=== PATIENT | female | born 1935 | race African-American/Black ===

== ENCOUNTER → 2016-09-09 | Outpatient (CLI) | payer OTHER ==
[~2016-09-09] VITALS: Ht 144.8 cm; Wt 84.6 kg
[~2016-09-09] MED LIST: ACETAMINOPHEN-1 EAC1 PO; ADVAIR 250-501 EACH INH; ADVAIRDISKUS; ALENDRONATE SOD70 MG PO; ASPIRIN EC81 M1 PO; B COMPLEX-VITA1 EACH PO; BENADRYL25 MG PO; BISA-LAX5 MG PO; CARBIDOPA-LEVO1 EAC6 PO; CARVEDILOL12.5 MG PO; CARVEDILOL6.25 MG PO; CITRATE OF MAG296 ML PO; CLARITIN10 MG PO; CLEOCIN HCL300 MG PO; CLONAZEPAM PO; COLCHICINE 0.60.6 M1 PO; COZAAR 25 MG TA25 M1 PO; D3; DOC-Q-LACE100 MG PO; DOCUSATE SODIU100 MG PO; ENDOCET 7.5-321 EACH PO; FENTANYL PA25 MCG/HR TP; FENTANYL PA50 MCG/HR TP; FLONASE 0.05%50 MCG NASAL; FOLIC ACID 40400 MC1 PO; FUROSEMIDE 40 M40 M1 PO; GLUCOPHAGE PO; GLUCOPHAGE XR500 MG PO; HUMALOG100 UNIT/1 SQ; HYDROCODON-ACE1 EAC7 PO; HYDROCODONE-AP1 EAC6 PO; IBUPROFEN 800800 M1 PO; IRON PO; LANTUS SC; LISINOPRIL40 MG PO; LOSARTAN POTASS50 MG PO; MEDROLDOSEPACK PO; METAMUCIL POWD288 GM; METHOCARBAMOL750 MG PO; MUCINEX DM TABL1 TA1; NEPHROCAPS SOFT1 CAP PO; NEURONTIN 300300 M1 PO; NEXIUM 40 MG CA40 M1 PO; NEXIUM40 MG; NEXIUM40 MG PO; NORCO 5-325 TA1 EACH PO; OXYCODONE-ACET1 EAC2 PO; OXYCODONE-ACET1 EACH PO; OXYCODONE-APAP1 EAC6 PO; PERCOCET 5-3251 EACH PO; POTASSIUM GLUC500 MG PO; PREDNISONE 20 M20 M1 PO; PRIMIDONE50 MG PO; PROAIR HFA8.5 GM IH; ROBAXIN 750 MG750 M1 PO; ROBAXIN 750 MG750 MG PO; SINGULAIR 10 MG10 M1 PO; SINGULAIR PO; SPIRIVA INH; TRAMADOL HCL50 MG PO; TRUSOPT OCUMETE10 M1 OP; TUMS PO; XALATAN2.5 ML OPHTHALMIC; ZANAFLEX4 M2 PO; ZANAFLEX4 MG PO
--- NOTE | ~2016-09-09 | HPC ---
[facility] [address] [place] [address] PAIN MANAGEMENT CONSULTATION Name: JUANCARLOS BRICE Room #: REG DAVID YoungMagoKaronMago#: [id number] Admission: 09/09/16 Attend Phys: Edy Meyers MD Discharge: Date of : 34 Report #: [id number] THIS REPORT FOR: //name// CC: Olman Chong DO Edy Meyers DATE OF SERVICE: 09/09/2016 Followup visit for post-laminectomy syndrome, lumbar radiculopathy, osteoarthritis, left shoulder. The patient was last seen in April, at which time, she received a lumbar epidural injection providing substantial improvement and she also received at that time a shoulder injection also providing improvement. She is here today for repeat of both injections. These palliative procedures are helpful for her and allow her to get along with independent living. I also provided with Tylenol No. 3, which she takes on an average of about 3 times daily and on some rare occasions, she will take an oxycodone 10/325. When the pain is so severe, she has trouble with movements. Both seemed to work effectively. I have been trying to encourage the lowest effective dose of these opioid medications under terms of our written opioid agreement. She has also chronically used the muscle relaxant tizanidine 4 mg and I am allowing her to take that tablet 3 times a day as well. She denies significant side effects despite her age. We might expect her to see more in the way of sedation, but I think her chronic use has reduced that. Today, she complains of fairly intense pain 9-10 across her low back and down into her legs. She has pain of 10 in her left shoulder with all movements. MEDICATIONS: Reviewed and reconciled from the electronic medical record. PHYSICAL EXAMINATION: She is pleasant female. She uses a walker to get around. Her blood pressure is 122/63, heart rate 73, BMI is 40.4. Examination of the spine reveals tenderness across the scar. She is weak when she moves from sitting to standing position and ambulates with a slow unstable gait. She has pain across her scar. She has bilateral straight leg raising which reproduces an achiness into her legs. She moans and groans with any movement of her left shoulder, which is severely arthritic and it is limited in all planes of motion. IMPRESSION: 1. Chronic low back pain secondary to spinal stenosis with neural foraminal narrowing at multiple levels above the level of her fusion. Primarily, this involves L1-L2 and L2-L3 and she has had good response to epidural injections above the scar. [address] [address] PAIN MANAGEMENT CONSULTATION Name: JUANCARLOS BRICE Room #: REG [facility] Karly#: [id number] Admission: 09/09/16 Attend Phys: Edy Meyers MD Discharge: Date of : 34 Report #: [id number] 2. Degenerative osteoarthritis, left shoulder. PROCEDURE: Lumbar epidural injection L1-L2 under fluoroscopic guidance. PROCEDURE NOTE: She was taken to fluoroscopic suite, placed prone, skin prepped with ChloraPrep. C-arm was utilized to identify midline. We had to rotate slightly to the right. A 20-gauge Tuohy epidural needle advanced in the epidural space with loss of resistance. There was no blood or CSF aspirated. 1 mL of Omnipaque injected to demonstrate good spread of dye within the epidural space. This was then followed by 3 mL of 0.5% lidocaine mixed with 80 mg of triamcinolone. She tolerated the procedure well and was observed for 45 minutes and discharged. Before discharge, we also turned her slightly to her right side on the x-ray table and used the C-arm to guide fluoroscopically place a 25-gauge needle into the left shoulder joint aspiration, I injected a 0.25 mL of Omnipaque. This demonstrated arthrogram followed by 4 mL of 0.25% bupivacaine mixed with 40 mg of triamcinolone. Pain score even in recovery room was reduced by 50%. She was discharged with good improvement with followup scheduled only as needed. We typically see her at 2-3 month intervals for her intractable pain. Emotional support provided to Namrata Villaseñor, her caregiver and a niece who has done such a beautiful job of helping keep her in home. By: [id number] Edy Meyers MD /nt
[2016-09-09 09:26] VITALS: BP 122/63
== END | disposition home or self-care (01) ==
LOC: PAIN 07:02
DX: M54.16 Radiculopathy, lumbar region (principal); M19.012 Primary osteoarthritis, left shoulder; M96.1 Postlaminectomy syndrome, not elsewhere classified; M48.06 Spinal stenosis, lumbar region

== ENCOUNTER → 2016-11-08 | Outpatient (CLI) | payer OTHER ==
[~2016-11-08] VITALS: Ht 144.8 cm; Wt 82.6 kg
--- NOTE | ~2016-11-08 | HPC ---
[facility] [place] [address] PAIN MANAGEMENT CONSULTATION Name: JUANCARLOS BRICE Room #: REG DAVID NickKaronMago#: [id number] Admission: 11/08/16 Attend Phys: Godwin Cruz DO Discharge: Date of : 34 Report #: [id number] THIS REPORT FOR: //name// CC: Olman Cruz The patient is a pleasant 81-year-old female typically seen by Dr. Edy Meyers for symptomatic lumbar radiculopathy, status post decompressive laminectomy, osteoarthritis affecting left shoulder, requiring complex medication management. The patient was last seen on 09/09/2016, given epidural injection at L1-L2 and left shoulder injection. She prior had similar combination of injections on 04/24/2016 and 09/14/2015. She also incidentally had lumbar epidural injection on 12/08/2015 and 02/21/2016. She returns to pain clinic today noting pain has recurred, it is interfering with function. She notes pain is fairly problematic mostly in the back and leg, exacerbated with standing. She rates the pain at 10/10. Has ongoing pain in left shoulder as well. PHYSICAL EXAMINATION: Shows an 81-year-old female, moderately obese with a BMI of 39.4 kilograms per meter squared. She uses a walker to ambulate. Significant decreased range of motion in left shoulder. Pain is exacerbated with attempts at passive range of motion, though she appears to have somewhat of a "frozen" shoulder with very limited range of motion in active and passive movements. Ongoing axial back pain with lumbar radicular symptoms. We reviewed most recent diagnostic findings including a CT of the lumbar spine with myelogram 01/24/2016 noting moderate to severe foraminal narrowing bilaterally at L1-L2, severe foraminal narrowing bilaterally at L2-L3. Status post lumbar decompressive laminectomy L3-L4 and L4-L5 with posterior element bone graft. ASSESSMENT: Symptomatic lumbar radiculopathy, status post decompressive laminectomy, degenerative joint disease, left shoulder with somewhat of a frozen shoulder component. RECOMMENDATIONS: I had discussion with the patient today about therapeutic options. We briefly discussed injecting both shoulder and back, but given significant radicular symptoms, we elected to simply do a midline epidural injection at L1-L2 and use the entire 60 mg dose (dose attenuated due to diabetes). Concerned that if I try and split the dose between her back and her shoulder, she would not get good therapeutic benefit of either. We will have her follow up in 2 weeks for reevaluation. If come down following this injection, we will consider left shoulder injection under fluoroscopy. ASSESSMENT: Symptomatic lumbar radiculopathy, status post decompressive laminectomy. [address] [address] PAIN MANAGEMENT CONSULTATION Name: JUANCARLOS BRICE Room #: REG DAVID Brandt#: [id number] Admission: 11/08/16 Attend Phys: Godwin Cruz DO Discharge: Date of : 34 Report #: [id number] PROCEDURE: Lumbar epidural steroid injection. PROCEDURE NOTE: After both written and informed consent to include risk of spinal cord damage, increased pain, weakness and dural puncture, the patient was taken to the fluoroscopy suite, placed in the prone position. After sterile prep and drape, a skin wheal with lidocaine was raised. A 22-gauge epidural Tuohy needle was inserted in the midline at L1-L2 with good loss to resistance. Negative aspiration for cerebrospinal fluid or blood was noted. Then 1 mL of Omnipaque under biplanar fluoroscopy showed good spread within the epidural space. This was followed with 60 mg of triamcinolone plus 1 mL of 1.5% preservative-free Xylocaine, 0.5 mL Xylocaine was then injected to flush the needle; it was removed. The patient was monitored for an appropriate period of time and discharged in good and stable condition. By: [id number] Godwin Cruz DO /nt
[2016-11-08 08:47] VITALS: BP 136/92
== END | disposition home or self-care (01) ==
LOC: PAIN 07:11
DX: M54.16 Radiculopathy, lumbar region (principal); M19.012 Primary osteoarthritis, left shoulder; E66.01 Morbid (severe) obesity due to excess calories; Z68.39 Body mass index [BMI] 39.0-39.9, adult; Z98.890 Other specified postprocedural states; Z87.891 Personal history of nicotine dependence

== ENCOUNTER → 2016-11-22 | Outpatient (CLI) | payer OTHER ==
[~2016-11-22] VITALS: Ht 144.8 cm; Wt 81.6 kg
--- NOTE | ~2016-11-22 | HPC ---
[facility] [place] [address] PAIN MANAGEMENT CONSULTATION Name: JUANCARLOS RBICE JESSE Room #: REG DAVID Karly#: [id number] Admission: 11/22/16 Attend Phys: Godwin Cruz DO Discharge: Date of : 34 Report #: [id number] THIS REPORT FOR: //name// CC: Olman Cruz The patient is a pleasant 81-year-old female, typically treated for osteoarthritis of the left shoulder, history of lumbar radiculopathy status post decompressive laminectomy, requiring complex medication management. Last seen in the pain clinic 11/08/2016, we did a lumbar epidural injection at L1-L2 with 60 mg of triamcinolone, returns to pain clinic today noting the radicular pain and axial back pain is improved. She continues to take rare Percocet 10/325 and in fact requested prescription for same. She uses ultimately with Tylenol No. 3. She uses neither agent on a daily basis. She presents to pain clinic today for left shoulder joint injection under fluoroscopy as we discussed at last visit. PHYSICAL EXAMINATION: Unchanged. Limited range of motion left shoulder with pain with all movement. Vital signs are stable as noted on the EMR. ASSESSMENT: Degenerative joint disease/osteoarthritis, left shoulder. PROCEDURE: Left shoulder injection under fluoroscopy with arthrogram. PROCEDURE NOTE: After written informed consent was obtained, the patient was taken to the fluoroscopy suite and placed in supine position. Skin overlying the left shoulder was cleansed with ChloraPrep. Sterile drape was applied. Skin wheal with Xylocaine was raised. A 22-gauge stylet needle was placed to contact the proximal aspect of the humerus under the acromioclavicular joint. Negative aspiration was accomplished. 1 mL of Omnipaque was injected, which showed a good arthrogram. Shoulder does appear to have decreased joint space and some irregularity to the joint, compatible with OA. The capsule dose appear to be intact. 40 mg triamcinolone plus 2 mL of 0.5% preservative-free bupivacaine was then injected. Needle was removed, the area was cleansed. The patient was told monitor the area, look for signs of infection, hyperpyrexia, etc. If these occurred, needs to return to the ER. Use ice to the area today. Follow up simply as needed. <ELECTRONICALLY SIGNED> By: Godwin Cruz DO 11/25/16 0657 [id number] Godwin Cruz DO /nt
[2016-11-22 10:02] VITALS: BP 141/72
== END ==
LOC: PAIN 06:49
DX: M19.012 Primary osteoarthritis, left shoulder (principal); I10 Essential (primary) hypertension; Z87.891 Personal history of nicotine dependence

== ENCOUNTER → 2017-01-10 | Outpatient (CLI) | payer OTHER | LOC: RAD 11:28 | DX: M54.5 Low back pain (principal); M25.552 Pain in left hip; R10.2 Pelvic and perineal pain ==

== ENCOUNTER → 2017-03-13 | Outpatient (CLI) | payer OTHER ==
[~2017-03-13] VITALS: Ht 144.8 cm; Wt 82.7 kg
--- NOTE | ~2017-03-13 | HPC ---
[facility] [address] [place] [address] PAIN MANAGEMENT CONSULTATION Name: JUANCARLOS BRICE Room #: REG DAVID ButlerMago#: [id number] Admission: 03/13/17 Attend Phys: Godwin Cruz DO Discharge: Date of : 34 Report #: [id number] THIS REPORT FOR: //name// CC: Tung Cruz DATE OF SERVICE: 03/13/2017 The patient is a very pleasant 81-year-old female, prior seen 11/22/2016. We did a left shoulder injection under fluoroscopy. She had prior had epidural injection with 60 mg triamcinolone to L1-L2 on 11/08/2016. Both injections afforded good relief. She has been maintained on Percocet 10/325 b.i.d. with Tylenol No. 3 one tablet up to t.i.d., 90 tablets with 2 refills, prescription was generated back in October. Returns to pain clinic today noting that the shoulder injection afforded good 2 months relief. Primary pain is in the mid upper back. Radiates in the left hip and around to the groin, down to the left knee. Rates the pain a 10 on VAS. The patient notes the pain is exacerbated with standing and walking, tingling, sharp sensation. PHYSICAL EXAMINATION: Shows an 81-year-old female, BMI is 39.5 kilograms per meter squared. Blood pressure is 168/78, pulse 85, respirations are 18. Again, VAS score is 10/10. Rises from chair using armrest. Antalgic gait. Diffuse tenderness across the low back. She has limited mobility issues, uses a walker which does exacerbate some shoulder pain. Lower extremity strength diminished but symmetric. DIAGNOSTIC STUDIES: Reviewed diagnostic findings. Lumbar myelogram from 01/24/2016 notes moderate to severe neural foraminal stenosis bilaterally at L1-L2, severe bilateral neural foraminal narrowing at L2-L3, predominantly from an endplate degenerative changes, moderate central canal stenosis L1-L2 and L2-L3 and lumbar spondylosis with significant decompression laminectomy below this from about L3 down. We reviewed the fact that opiate medications are being used to provide analgesia adequate to support activities of daily living, not attempting to achieve a specific pain score on the 0-10 Visual Analog Scale. The current opiate medications are providing sufficient analgesia to allow the patient to participate in activities of daily living. The patient is not exhibiting any aberrant behavior suggestive of drug diversion. The patient is not having any adverse reactions to medications. The patient is not suffering from daytime somnolence or mental acuity changes. The patient is managing opiate-induced constipation with appropriate stin-zvv-dsswfxv agents and dietary considerations. The patient was counseled on concern [place] [address] PAIN MANAGEMENT CONSULTATION Name: JUANCARLOS BRICE Room #: REG DAVID Brandt#: [id number] Admission: 03/13/17 Attend Phys: Godwin Cruz DO Discharge: Date of : 34 Report #: [id number] a motor vehicle while using opiate medications. A physical exam was performed and the patient's functional status was evaluated. All patients with back pain were advised against the bed rest greater than 4 days and were advised to return to normal activities. Pain score assessment was noted and the treatment plan was reviewed with the patient. All current medications, both prescribed and OTC were reviewed and reconciled on the electronic medical record. Tobacco screening was accomplished and smoking cessation was advised when indicated. BMI was noted and diet/exercise modification was recommended for all patients following outside normal parameters. I reviewed with the patient today their responsibilities to safeguard prescription medications, reviewed their responsibility to utilize medications only as prescribed by the physician. They are to seek and receive pain medications only from 1 physician group ( [facility]). They are to use 1 pharmacy and keep the clinic informed if they change pharmacies. Their responsibilities include making followup visits in a timely fashion and to avoid abrupt discontinuation of medication usage. Their responsibilities further include bringing their medications (bottles from the pharmacy with residual pills) to the visit for possible confirmation of pill counts and the patient understands it is their responsibility to submit to random drug screens to ensure both that the medications prescribed are present, and that no other controlled substances are present. All prescriptions provided today were generated electronically. ASSESSMENT: 1. Symptomatic degenerative joint disease, left shoulder, good relief following shoulder injection at last visit. 2. Chronic pain syndrome requiring high risk complex medication management. RECOMMENDATION: 1. Continue Percocet 10/325, 60 tablets typically lasts 3 months; renew Tylenol No. 3 one tablet t.i.d., 90 tablets, 2 refills. 2. Acute exacerbation of lumbar radiculopathy status post decompressive laminectomy. PROCEDURE: Midline lumbar epidural injection under fluoroscopy. PROCEDURE NOTE: After both written and informed consent to include risk of spinal cord damage, increased pain, weakness and dural puncture, the patient was taken to the fluoroscopy suite, placed in the prone position. After sterile prep and drape, a skin wheal with lidocaine was raised. A 22-gauge epidural Tuohy needle was inserted in the midline at L1-L2 with good loss to resistance. Negative aspiration for cerebrospinal fluid or blood was noted. Then 1 mL of Omnipaque under biplanar fluoroscopy showed good spread within the epidural [address] [address] PAIN MANAGEMENT CONSULTATION Name: JUANCARLOS BRICE Room #: REG [facility]#: [id number] Admission: 03/13/17 Attend Phys: Godwin Cruz DO Discharge: Date of : 34 Report #: [id number]. This was followed with 80 mg of triamcinolone plus 1 mL of 1.5% preservative-free Xylocaine, 0.5 mL Xylocaine was then injected to flush the needle; it was removed. The patient was monitored for an appropriate period of time and discharged in good and stable condition. I am pleased to report that the patient had good relief following injection, noted pain score was absent on discharge. <ELECTRONICALLY SIGNED> By: Godwin Cruz DO 03/17/17 0840 [id number] [id number] Godwin Cruz DO /nt
[2017-03-13 13:18] VITALS: BP 168/78
== END | disposition home or self-care (01) ==
LOC: PAIN 06:36
DX: M54.16 Radiculopathy, lumbar region (principal); G89.4 Chronic pain syndrome; M19.012 Primary osteoarthritis, left shoulder; Z98.890 Other specified postprocedural states; Z79.891 Long term (current) use of opiate analgesic; Z87.891 Personal history of nicotine dependence; Z88.0 Allergy status to penicillin; Z88.8 Allergy status to other drugs, medicaments and biological substances; Z79.82 Long term (current) use of aspirin; Z79.899 Other long term (current) drug therapy

== ENCOUNTER → 2017-06-19 | Outpatient (CLI) | payer OTHER ==
[~2017-06-19] VITALS: Ht 144.8 cm; Wt 82.6 kg
--- NOTE | ~2017-06-19 | HPC ---
[facility] [place] [address] PAIN MANAGEMENT CONSULTATION Name: JUANCARLOS BRICE Room #: REG DAVID Butler.#: [id number] Admission: 06/19/17 Attend Phys: Edy Meyers MD Discharge: Date of : 34 Report #: [id number] THIS REPORT FOR: //name// CC: Eddie Coates MD DATE OF SERVICE: 06/19/2017 Followup visit for low back pain with radiculopathy. HISTORY OF PRESENT ILLNESS: The patient returns to pain clinic today and would like an epidural injection. She has had periodic injections which has allowed her to carry on and continue to manage by herself with some assistance from her niece and her sister. They all live together in the same house. She is also on an opioid agreement, managing well with oxycodone 10/325 no more than 3 tablets a day for a total of 45 morphine milligram equivalents. The combination of injections and medications has worked nicely. We reviewed the importance of managing her medications carefully under terms of our agreement. I reviewed her agreement and the need for regular followup. Periodic random drug testing and other issues. She does not smoke. She is not hypertensive. She is a fall risk and uses a walker. We talked about the importance of maintaining her mobility. MEDICATIONS: Reviewed and reconciled from the electronic medical record. No changes in her current pain medication. She will remain on oxycodone 10/325. Prescriptions will be provided at 3-month intervals with release date prescriptions at 4 and 8 weeks. PHYSICAL EXAMINATION: GENERAL: The patient is pleasant, alert and oriented, does not appear to have any evidence of dementia or depression. VITAL SIGNS: Blood pressure 142/68, heart rate 85. BMI is 32. She is able to move from sitting to standing position. She has positive straight leg raising discomfort bilaterally. Localized tenderness across her scar. IMPRESSION: Post-laminectomy syndrome pain radiating mostly in the L2-L3, L3-L4 distribution. PROCEDURE: Lumbar epidural injection under fluoroscopic guidance. DESCRIPTION OF PROCEDURE: She was taken to the fluoroscopic suite for the treatment, placed prone, skin prepped with ChloraPrep. Skin anesthetized over L2-L3. A 20-gauge Tuohy epidural needle advanced in the epidural space with loss of resistance technique. No blood or CSF aspirated. 1 mL of Omnipaque [address] [address] PAIN MANAGEMENT CONSULTATION Name: YUNIELJUANCARLOS JESSE Room #: REG DAVID Karly#: [id number] Admission: 06/19/17 Attend Phys: Edy Meyers MD Discharge: Date of : 34 Report #: [id number] injected. Good spread of dye observed in the epidural space followed by 3 mL of 0.5% lidocaine mixed with 80 mg of triamcinolone. She tolerated the procedure well and was observed for 45 minutes and discharged. Follow up as needed. <ELECTRONICALLY SIGNED> By: Edy Meyers MD 08/13/17 1640 [id number] [id number] Edy Meyers MD /mauri
[2017-06-19 09:39] VITALS: BP 142/68
== END | disposition home or self-care (01) ==
LOC: PAIN 07:06
DX: M54.16 Radiculopathy, lumbar region (principal); M96.1 Postlaminectomy syndrome, not elsewhere classified; Z79.891 Long term (current) use of opiate analgesic; Z87.891 Personal history of nicotine dependence; Z88.0 Allergy status to penicillin; Z88.8 Allergy status to other drugs, medicaments and biological substances; Z79.82 Long term (current) use of aspirin; Z79.4 Long term (current) use of insulin; Z79.899 Other long term (current) drug therapy

== ENCOUNTER → 2017-09-18 | Outpatient (CLI) | payer OTHER ==
[~2017-09-18] VITALS: Ht 144.8 cm; Wt 81.6 kg
--- NOTE | ~2017-09-18 | HPC ---
[facility] [place] [address] PAIN MANAGEMENT CONSULTATION Name: JUANCARLOS BRICE Room #: REG DAVID ButlerMago#: [id number] Admission: 09/18/17 Attend Phys: Edy Meyers MD Discharge: Date of : 34 Report #: [id number] THIS REPORT FOR: //name// CC: Edy Forrest DATE OF SERVICE: 09/18/2017 Followup visit for low back pain with radiculopathy, post-laminectomy. The patient presents to pain clinic today reporting that her pain has increased once more back to the level of about 10. She is in a wheelchair. She is still able to live independently in the home with her daughter and her sister. She has osteoarthritis involving multiple joints including left and right shoulder, left and right hip and knee. This limits her mobility significantly. She has been on an opioid agreement last signed on 12/08/2015. She is at low risk of addiction. She and her family all understand the importance of carefully safeguarding these medications with her grateful for the relief that she gets from them as well as the relief that she receives from her injections. We have been performing epidural injections and I have been lowering the dose of triamcinolone. Given her frequency of receiving these injections, I gave her an injection about every 3 months and also renew her medication. In 2017, she received 4 injections. PHYSICAL EXAMINATION: She is a pleasant female in a wheelchair. She is alert and oriented without signs of dementia. Her chest is clear, breathing is comfortable. Examination of the spine reveals a large midline scar in the lumbosacral region with tenderness. She has bilateral straight leg raising discomfort noted following an L5-S1 distribution. IMPRESSION: Low back pain with radiculopathy. PROCEDURE: Epidural steroid injection. I have been injecting her above her scar in the L2-L3 distribution. PROCEDURE NOTE: She was placed in a prone position. Skin prepped with ChloraPrep, anesthetized over the L2-L3 interspace. A 20-gauge Tuohy epidural needle advanced in the epidural space with loss of resistance technique. No blood or CSF aspirated. 1 mL of Omnipaque injected with good spread of dye observed in the epidural space followed by 3 mL of 0.5% lidocaine mixed with [address] [facility] [address] [place] [address] PAIN MANAGEMENT CONSULTATION Name: JUANCARLOS BRICE WATSON Room #: REG [facility].#: [id number] Admission: 09/18/17 Attend Phys: Edy Meyers MD Discharge: Date of : 34 Report #: [id number] mg triamcinolone. She tolerated the procedure well and was observed for 45 minutes and discharged. Follow up as needed. <ELECTRONICALLY SIGNED> By: Edy Meyers MD 09/22/17 1408 1645 51 Edy Meyers MD /nt
[2017-09-18 12:38] VITALS: BP 136/86
== END | disposition home or self-care (01) ==
LOC: PAIN 06:01
DX: M54.16 Radiculopathy, lumbar region (principal); M96.1 Postlaminectomy syndrome, not elsewhere classified; G89.29 Other chronic pain; M19.90 Unspecified osteoarthritis, unspecified site; Z87.891 Personal history of nicotine dependence; Z88.0 Allergy status to penicillin; Z88.8 Allergy status to other drugs, medicaments and biological substances; Z79.82 Long term (current) use of aspirin; Z79.899 Other long term (current) drug therapy; Z79.4 Long term (current) use of insulin; Z79.891 Long term (current) use of opiate analgesic

== ENCOUNTER → 2017-12-05 | Outpatient (CLI) | payer OTHER ==
[~2017-12-05] VITALS: Ht 144.8 cm; Wt 81.6 kg
--- NOTE | ~2017-12-05 | HPC ---
[facility] [place] [address] PAIN MANAGEMENT CONSULTATION Name: JUANCARLOS BRICE Room #: REG DAVID Karly#: [id number] Admission: 12/05/17 Attend Phys: Godwin Cruz DO Discharge: Date of : 34 Report #: [id number] THIS REPORT FOR: //name// CC: Debby Cruz DATE OF SERVICE: 12/05/2017 HISTORY OF PRESENT ILLNESS: The patient is a very pleasant 82-year-old female, typically treated by Dr. Edy Meyers, has ongoing pain, status post lumbar decompressive laminectomy, some concerns with ongoing left shoulder pain as well. She has had occasional shoulder injections, multiple epidural injections, usually with good overall improvement of baseline pain. She uses Percocet 10/325 on a p.r.n. basis, not more than 3 tablets a day. Last seen in pain clinic on 09/18/2017, had epidural injection at L2-L3 at that time with incremental improvement of baseline pain. The patient returns to the pain clinic today noting pain has recurred "with a vengeance." Appears to be in a little lower distribution, hips, groin, lateral thigh and somewhat in L4 distribution. Pain is worse in the right than the left. Pain is exacerbated with standing, walking and bending. PHYSICAL EXAMINATION: Shows diffuse tenderness across the low back. Positive straight leg raise with weakness bilaterally, right greater than left. ASSESSMENT: Symptomatic lumbar radiculopathy status post decompressive laminectomy. RECOMMENDATION: Discussion with the patient today about therapeutic options. We have elected to proceed with epidural injection under fluoroscopy today at L4-L5, right of midline. Follow up in about 3-4 weeks for reevaluation. May consider a shoulder injection if indicated at that time. The patient does not require medication renewal at this time. PROCEDURE: Lumbar epidural injection under fluoroscopy. PROCEDURE NOTE: After both written and informed consent to include risk of spinal cord damage, increased pain, weakness and dural puncture, the patient was taken to the fluoroscopy suite, placed in the prone position. After sterile prep and drape, a skin wheal with lidocaine was raised. A 22-gauge epidural Tuohy needle was inserted in the midline at L4-L5 with good loss to resistance. Negative aspiration for cerebrospinal fluid or blood was noted. Then 1 mL of Omnipaque under biplanar fluoroscopy showed good spread within the epidural space. This was followed with 80 mg of triamcinolone plus 1 mL of 1.5% preservative-free Xylocaine, 0.5 mL Xylocaine was then injected to flush the [address] [address] PAIN MANAGEMENT CONSULTATION Name: YUNIELJUANCARLOS JESSE Room #: REG [facility] Karly#: [id number] Admission: 12/05/17 Attend Phys: Godwin Cruz DO Discharge: Date of : 34 Report #: [id number] needle; it was removed. The patient was monitored for an appropriate period of time and discharged in good and stable condition. <ELECTRONICALLY SIGNED> By: Godwin Cruz DO 12/08/17 0710 1401 0230 Godwin Cruz DO /nt
[2017-12-05 13:35] VITALS: BP 166/101
== END | disposition home or self-care (01) ==
LOC: PAIN 11-27 06:46
DX: M54.16 Radiculopathy, lumbar region (principal); G89.29 Other chronic pain; Z98.890 Other specified postprocedural states; Z87.891 Personal history of nicotine dependence; Z88.8 Allergy status to other drugs, medicaments and biological substances; Z79.82 Long term (current) use of aspirin; Z79.899 Other long term (current) drug therapy

== ENCOUNTER → 2018-06-29 | Outpatient (CLI) | payer OTHER ==
[~2018-06-29] VITALS: Ht 144.8 cm; Wt 74.6 kg
--- NOTE | ~2018-06-29 | HPC ---
[facility] [address] [place] [address] PAIN MANAGEMENT CONSULTATION Name: JUANCARLOS BRICE Room #: REG DAVID ButlerMago#: [id number] Admission: 06/29/18 Attend Phys: Edy Meyers MD Discharge: Date of : 34 Report #: [id number] THIS REPORT FOR: //name// CC: Edy Forrest DATE OF SERVICE: 06/29/2018 CHIEF COMPLAINT: Chronic low back pain with radiculopathy post laminectomy and left shoulder pain with severe degenerative osteoarthritis. The patient is here today in pain clinic for an injection and renew of medication. She is 82 years old, is markedly debilitated, lives in the home with her sister and her niece who helps care for her. She is not a surgical candidate. We provide injections of medication for her on a palliative basis. She has been able to remain at home with this pain management and is limited, but able to care for herself at a basic level. She has difficulty with walking and standing. She has a walker with her today. The use of a walker or cane causes weightbearing pain and disruption of her left shoulder. PHYSICAL EXAMINATION: GENERAL: Pleasant 82-year-old. Alert and oriented. She is very, very hard of hearing and I have to shout for her to understand. She can independently move from standing, but has difficulty with walking without her walker. VITAL SIGNS: Her blood pressure today is 136/84, heart rate 74. CHEST: Clear. CARDIAC: Rhythm is regular. ABDOMEN: Soft. EXTREMITIES: She has tenderness over the right shoulder, but significant discomfort with palpation of the left shoulder, difficulty with internal and external rotation and abduction. BACK: Examination of the back is limited due to previous scarring and she has pain with range of motion in all planes, flexion, extension, rotation, gyid-tc-rysa tilt. IMPRESSION: 1. Chronic low back pain with spondylosis, radiculopathy. 2. Post-laminectomy syndrome. 3. Osteoarthritis, primarily left shoulder. 4. History of hypertension. 5. Management of opioid medications under terms of written agreement. She will carefully safeguard her medications. We reviewed her responsibilities with her. PROCEDURE: Epidural steroid injection and left shoulder injection. The epidural injection was performed under fluoroscopic guidance. She was taken [address] [address] PAIN MANAGEMENT CONSULTATION Name: JUANCARLOS BRICE [place] Room #: REG DAVID Brandt#: [id number] Admission: 06/29/18 Attend Phys: Edy Meyers MD Discharge: Date of : 34 Report #: [id number] to fluoroscopic suite. She was placed prone, skin prepped with ChloraPrep. Skin anesthetized over the L2-L3 interspace. A 20-gauge Tuohy epidural needle advanced in the epidural space in first attempt using loss of resistance. There was no blood or CSF aspirated. 1 mL of Omnipaque injected. Good spread of dye observed in the epidural space followed by 3 mL of 0.5% lidocaine mixed with 80 mg of triamcinolone. She tolerated the procedure well and was observed for 45 minutes and discharged. Follow up as needed. The left shoulder was prepped with ChloraPrep. A 25-gauge needle was advanced into the shoulder joint from a posterior approach. After negative aspiration, I gently injected the shoulder joint with a total of 4 mL of 0.5% bupivacaine mixed with 80 mg of triamcinolone. She tolerated the procedure well and was observed for 45 minutes and discharged. Follow up in the pain clinic on an as needed basis. I renewed her medications under terms of our agreement. I released prescriptions for 4 and 8 weeks. Her dose will be oxycodone 5/325 three times daily. By: [id number] Edy Meyers MD /nt
[2018-06-29 12:01] VITALS: BP 149/58
--- NOTE | 2018-06-29 12:14 | NUR ---
Pain Clinic Assessment: 1. History of Osteoarthritis: Left Lower Extremity Left Upper Extremity Right Lower Extremity Right Upper Extremity History of Rheumatoid Arthritis: Not Applicable 2. Height: 4 ft. 9 in. 144.8 cm. Weight: 164.4 lb. oz. 74.571 kg. Patient's BMI: 35.6 3. Vital Signs: BP: 149/58 Pulse: 79 Resp: 18 Temp: 02 Sat: 99 ECG Mon: 4. Pain Intensity: 9 5. Fall Risk: Dizziness: N Needs help standing or walking: Y Fallen in the last 3 months: N Fall risk comments: USES WALKER 6. Patient on Blood Thinner: None 7. History of Hypertension: Y 8. Opioid Therapy greater than 6 weeks: Y Opiate Contract Signed: 12/08/15 9. Risk Assessment Tool Provided: 3/LOW 10. Functional Assessment Tool: 11. Recreational Drug Use: Never Drug Type: Tobacco Use: Former Smoker Tobacco Type: Amount or Packs/day: How Many Years: Alcohol Use: No Frequency: Quant:
== END | disposition home or self-care (01) ==
LOC: PAIN 06-01 02:08
DX: M19.012 Primary osteoarthritis, left shoulder (principal); M47.26 Other spondylosis with radiculopathy, lumbar region; M25.512 Pain in left shoulder; G89.29 Other chronic pain; M96.1 Postlaminectomy syndrome, not elsewhere classified; I10 Essential (primary) hypertension; Z79.891 Long term (current) use of opiate analgesic; Z87.891 Personal history of nicotine dependence; Z88.8 Allergy status to other drugs, medicaments and biological substances; Z79.899 Other long term (current) drug therapy; Z98.890 Other specified postprocedural states; Z79.82 Long term (current) use of aspirin

== ENCOUNTER 2019-02-02 11:14 | Emergency (ER) | payer OTHER ==
[~2019-02-02] VITALS: Ht 157.5 cm; Wt 86.2 kg
[2019-02-02 12:08] LABS: HEMOGLOBIN 10.5 gm/dL (12.0-15.0); MCHC 31.9 g/dL (28.0-37.0); MCV 75.2 fL (80.0-100.0); PLATELET COUNT 115 thou/uL (150-400); RBC 4.39 mil/uL (4.20-5.00); RDW 16.9 % (10.5-14.5); WBC 3.2 thou/uL (4.0-11.0)
[2019-02-02 12:15] LABS: ANION GAP 6 mmol/L (7-16); BUN 17 mg/dL (7-18); CALCIUM 9.6 mg/dL (8.5-10.1); CHLORIDE 106 mmol/L (98-107); CO2 27 mmol/L (21-32); CREATININE 1.4 mg/dL (0.6-1.0); GLUCOSE 137 mg/dL (74-106); POTASSIUM 4.2 mmol/L (3.5-5.1); SODIUM 139 mmol/L (136-145)
[2019-02-02 12:24] LABS: TROPONIN-I <0.06 ng/mL (<0.06)
[2019-02-02 12:32] LABS: ABSOLUTE NEUTROPHILS 1.9 thou/uL (1.4-8.2); ATYPICAL LYMPHS 4 %; PLATELET ESTIMATE NORMAL
[2019-02-02] MEDS ORDERED: FOLBIC RF TABL1 EACH PO (12:42)
[2019-02-02] MEDS ORDERED: ACETAMINOPHEN-1 EAC1 PO (12:43)
[2019-02-02] MEDS ORDERED: COZAAR 25 MG TA25 M1 PO (12:47)
[2019-02-02] MEDS ORDERED: POTASSIUM GLUC500 MG PO (12:47)
[2019-02-02] MEDS ORDERED: LASIX 40 MG TAB40 M2 PO (14:25)
[2019-02-02 16:48] VITALS: BP 138/96
--- NOTE | 2019-02-02 17:31 | EKG ---
[place] [address] [address] [facility] [place] [address] ELECTROCARDIOGRAM REPORT Name: JUANCARLOS BRICE [id number] Admission: 02/02/19 Attend Phys: Discharge: 02/02/19 Date of : 34 Report #: [id number] THIS REPORT FOR: //name// [facility] ED Test Date: 2019-02-02 Test Time: 11:18:47 Pat Name: JUANCARLOS BRICE Department: Room: Gender: F Cardiac Nurse Specialist: KMD : 1935 Requested By: Christofer Blackmon Order Number: [id number] MD: Enrico Felipe Measurements Intervals [place] Rate: 78 P: 0 RI: 212 QRS: -65 QRSD: 149 T: 107 QT: 409 QTc: 466 Interpretive Statements Sinus rhythm Multiform ventricular premature complexes Borderline prolonged RI interval Nonspecific IVCD with LAD Inferior infarct, old Probable anterior infarct, age indeterminate Compared to ECG 09/12/2012 04:13:22 Intraventricular conduction delay now present Myocardial infarct finding now present Right bundle-branch block no longer present Left anterior fascicular block no longer present Bifascicular block no longer present Electronically Signed On 02-02-2019 17:31:24 CDT by Enrico Felipe [email or web address] <ELECTRONICALLY SIGNED> By: Enrico Felipe MD, [facility] 02/02/19 1731 1118 1118 Enrico Felipe MD, [facility] /EPI
== END 2019-02-02 16:50 | disposition home or self-care (01) ==
LOC: ER 11:14
PROVIDERS: Emergency Medicine
DX: R06.02 Shortness of breath (principal); R09.89 Other specified symptoms and signs involving the circulatory and respiratory systems; I11.0 Hypertensive heart disease with heart failure; I50.9 Heart failure, unspecified; J45.909 Unspecified asthma, uncomplicated; I25.2 Old myocardial infarction; K21.9 Gastro-esophageal reflux disease without esophagitis; E11.9 Type 2 diabetes mellitus without complications; Z90.49 Acquired absence of other specified parts of digestive tract; Z86.73 Personal history of transient ischemic attack (TIA), and cerebral infarction without residual deficits; Z79.899 Other long term (current) drug therapy; Z79.82 Long term (current) use of aspirin; Z79.4 Long term (current) use of insulin; Z95.0 Presence of cardiac pacemaker

== ENCOUNTER 2019-02-05 11:31 | Inpatient (IN) | payer OTHER ==
[~2019-02-05] VITALS: Ht 160 cm; Wt 82.8 kg
[~2019-02-05 11:31] MED LIST changes: +FOLBIC RF TABL1 EACH PO; +LASIX 40 MG TAB40 M2 PO
[2019-02-05 11:32] VITALS: BP 97/47
[2019-02-05 11:55] LABS: HEMATOCRIT 30.7 % (37.0-47.0); HEMOGLOBIN 9.8 gm/dL (12.0-15.0); PLATELET COUNT 123 thou/uL (150-400); RDW 16.6 % (10.5-14.5); WBC 4.3 thou/uL (4.0-11.0)
[2019-02-05 12:01] LABS: CALCIUM 9.7 mg/dL (8.5-10.1); CREATININE 1.6 mg/dL (0.6-1.0); POTASSIUM 3.7 mmol/L (3.5-5.1)
[2019-02-05 12:11] LABS: ALBUMIN 3.1 g/dL (3.4-5.0); TOTAL BILIRUBIN 0.5 mg/dL (<0.1-1.0); TOTAL PROTEIN 7.2 g/dL (6.4-8.2); TROPONIN-I 0.08 ng/mL (<0.06)
[2019-02-05 13:26] LABS: ABSOLUTE NEUTROPHILS 2.4 thou/uL (1.4-8.2); ANISOCYTOSIS 1+; OVALOCYTES FEW
[2019-02-05 13:27] LABS: POLYCHROMASIA OCCASIONAL
[2019-02-05 13:29] LABS: ATYPICAL LYMPHS 2 %
--- NOTE | 2019-02-05 15:14 | EKG ---
[place] [address] [place] [address] ELECTROCARDIOGRAM REPORT Name: JUANCARLOS BRICE Room #: 170-11 ADM IN M.R.#: [id number] Admission: 02/05/19 Attend Phys: Lynn Pedraza Discharge: Date of : 34 Report #: [id number] THIS REPORT FOR: //name// [facility] ED Test Date: 2019-02-05 Test Time: 11:37:45 Pat Name: JUANCARLOS BRICE Department: Room: 170 Gender: F Entry Level Financial Analyst: ANSLEY : 1935 Requested By: Alcides Crouch Order Number: [id number] MD: Enrico Felipe Measurements Intervals [place] Rate: 83 P: -4 PA: 192 QRS: -65 QRSD: 143 T: 133 QT: 429 QTc: 505 Interpretive Statements Ventricular-paced complexes No further rhythm analysis attempted due to paced rhythm No previous ECGs available for comparison Electronically Signed On 02-05-2019 15:14:41 CDT by Enrico Felipe [email or web address] <ELECTRONICALLY SIGNED> By: Enrico Felipe MD, [facility] 02/05/19 1514 1137 113 Enrico Felipe MD, [facility] /EPI
--- NOTE | 2019-02-05 16:14 | 2DMMODE ---
[facility] [place] [address] 2 D/M-MODE ECHOCARDIOGRAM Name: JUANCARLOS BRICE [facility] Room #: 170-11 ADM IN M.R.#: [id number] Admission: 02/05/19 Attend Phys: Lynn Coles Discharge: Date of : 34 Date of Service: 02/05/19 1614 Report #: [id number] THIS REPORT FOR: //name// APPROVED REPORT Study performed: 02/05/2019 14:50:03 EXAM: Comprehensive 2D, Doppler, and color-flow Echocardiogram Patient Location: ER Room #: 11 Status: routine BSA: 1.85 HR: 91 bpm BP: 120/66 mmHg Other Information Study Quality: Adequate Indications ICD: Diabetes Dyspnea Hypertension/HDD 2D Dimensions RVDd: 42.60 mm IVSd: 10.21 (7-11mm) LVOT Diam: 17.40 (18-24mm) LVDd: 56.09 mm PWd: 11.06 (7-11mm) Ascending Ao: 24.85 (22-36mm) LVDs: 54.90 (25-40mm) Aortic Root: 28.67 mm IVC: 22.00 mm Volumes Left Atrial Volume (Systole) Single Plane 4CH: 81.90 mL Single Plane 2CH: 88.38 mL LA ESV Index: 51.00 mL/m2 Aortic Valve AoV Peak Derrek.: 1.50 m/s AO Peak Gr.: 8.94 mmHg Pulmonary Valve PV Peak Derrek.: 0.76 m/s PV Peak Gr.: 2.37 mmHg Tricuspid Valve [facility] [address] [place] [address] 2 D/M-MODE ECHOCARDIOGRAM Name: YUNIELJUANCARLOS JESSE Room #: 170-11 [facility] IN ..#: [id number] Admission: 02/05/19 Attend Phys: Lynn Coles Discharge: Date of : 34 Date of Service: 02/05/19 1614 Report #: [id number] TR Peak Derrek.: 3.42 m/s TR Peak Gr.: 46.87 mmHg PA Pressure: 62.00 mmHg Left Ventricle Left ventricle is dilated. There is global hypokinesis of the left ventricle. Borderline concentric left ventricular hypertrophy. Left ventricular ejection fraction is severely decreased. LVEF is 25-30%. Inferolateral akinesis This study is not technically sufficient to allow evaluation of the LV diastolic function. Right Ventricle Right ventricle is dilated. The right ventricular systolic function is normal. Atria Left atrium is dilated. Right atrium is dilated. Aortic Valve Aortic valve is calcified. Trace to mild aortic regurgitation. There is no aortic valvular stenosis. Mitral Valve Heavy mitral annular calcification Mild mitral regurgitation. No evidence of mitral valve stenosis. Tricuspid Valve The tricuspid valve is normal in structure. There is moderate tricuspid regurgitation. Estimated PAP 60 mmHg. There is moderate pulmonary hypertension. Pulmonic Valve The pulmonary valve is normal in structure. Trace pulmonic regurgitation. Great Vessels The aortic root is normal in size. The inferior vena cava is dilated with no inspiratory collapse. Pericardium There is no pericardial effusion. <Conclusion> Left ventricular ejection fraction is severely decreased. There is global hypokinesis of the left ventricle. LVEF is 25-30%. Inferolateral akinesis [facility] [address] [place] [address] 2 D/M-MODE ECHOCARDIOGRAM Name: JUANCARLOS BRICE [facility] Room #: 170-[facility] IN ..#: [id number] Admission: 02/05/19 Attend Phys: Lynn Coles Discharge: Date of : 34 Date of Service: 02/05/191613 Report #: [id number] Both atria are dilated. Aortic valve is calcified. Trace to mild aortic regurgitation, no stenosis. Heavy mitral annular calcification. Mild mitral regurgitation. There is moderate tricuspid regurgitation. Estimated pulmonary artery pressure of 60 mmHg. There is no pericardial effusion. <ELECTRONICALLY SIGNED> By: Enrico Felipe MD, [facility] 02/05/191613 13 13 Enrico Felipe MD, FACC /INF
[2019-02-05 16:41] LABS: BE(vivo) -0.2 mmol/L (-2 to +3); HCO3 24.5 mmol/L (22.0-26.0); PCO2 40.2 mmHg (35.0-45.0); PO2 69.3 mmHg (80.0-100.0); pH 7.403 (7.360-7.450)
[2019-02-05 17:48] VITALS: BP 116/53; BP 122/62
[2019-02-05 18:15] VITALS: BP 124/67
--- NOTE | 2019-02-05 19:57 | NUR ---
ADMITTED TO CCU FROM ER THIS EVENING. PT REPORTS SHE WAS SOA AT HOME AND CALLED EMS. STATES SHE HAS BEEN HAVING THIS SOA FOR ABOUT 4 DAYS BUT IT WORSENED TODAY. O2 SATS STABLE ON 3L/NC. TOLERATING PO. CARE PLAN INITIATED. REPORT GIVEN TO AIRWORTHINESS INSPECTOR RN.
[2019-02-05 21:00] VITALS: BP 141/52
[2019-02-06 00:16] VITALS: BP 138/77
--- NOTE | 2019-02-06 04:11 | NUR ---
ASSUMED CARE FROM DAY SHIFT , PT RESTING IN BED DENIES SOA AT THIS TIME DISCUSSED PLAN OF CARE AND AGREEABLE AND HAVE NO CONCERNS , PRINCIPAL STATISTICAL SCIENTIST SHOWS NSR VSS, RESTING WELL THROUGOUT HOURLY ROUNDING WILLREPORT CHANGES OR ABNORMAL FINDINGS OR CHANGES.
[2019-02-06 04:55] VITALS: BP 129/83
[2019-02-06 06:00] LABS: CREATININE 1.5 mg/dL (0.6-1.0); POTASSIUM 4.4 mmol/L (3.5-5.1)
[2019-02-06 08:47] VITALS: BP 158/62
--- NOTE | 2019-02-06 08:56 | NUR ---
[facility] [place] [address]. REQUESTED MED LIST BE FAXED TO THIS ED FOR CHART UPDATE; MSG LEFT PER PHARM INSTRUCTIONS THEY ARE NOT YET OPEN TODAY
[2019-02-06 16:36] VITALS: BP 110/58
[2019-02-06 19:43] VITALS: BP 147/57
[2019-02-07 02:59] VITALS: BP 120/58
--- NOTE | 2019-02-07 06:03 | NUR ---
PATIENTS CARES WERE ASSUMED AT SHIFT CHANGE.PATIENT WAS ASSESSED AND MEDS WERE PASSED. PATIENT C/O OF BAKE PAIN THIS SHIFT, TYLENOL AND JOYCEIEN WAS GINEN. PATIENT WAS RESTLESS MOST OF THIS SHRLFT. ABOUT 0330 SHE TOO WAS READY TO HER LIGHT LIAE OF WOULD. HOURLY ROUNDING WAS DONE. THE BED IS IN A LOW AND LOCKED POSITION
[2019-02-07 07:39] VITALS: BP 135/70
[2019-02-07 17:15] VITALS: BP 133/96
--- NOTE | 2019-02-07 18:33 | NUR ---
PATIENT CARE ASSUMED AT SHIFT CHANGE, ASSESSMENT CHARTED, PATIENT EKWOK, VSS, UP TO THE CHAIR WITH PT, NO COMPLAINTS OF PAIN, WILL CONTINUE TO MONITOR
[2019-02-07 19:43] VITALS: BP 154/87
[2019-02-08 04:30] LABS: CALCIUM 8.9 mg/dL (8.5-10.1); CREATININE 1.2 mg/dL (0.6-1.0); PHOSPHORUS 3.7 mg/dL (2.5-4.9); POTASSIUM 4.7 mmol/L (3.5-5.1)
[2019-02-08 04:45] VITALS: BP 103/70
--- NOTE | 2019-02-08 07:48 | NUR ---
ASSESSMENTS CHARTED. PATIENT LETHARGIC EASILY AROUSABLE. HARD OF HEARING. ON OXYGEN. PLAN IS TO CONTINUE BREATHING TREATMENTS, TAPER STEROIDS, BUILD STRENGTH. FALL PRECAUTIONS IN PLACE. DENIES PAIN.
[2019-02-08 07:57] VITALS: BP 131/82
[2019-02-08] MEDS ORDERED: LEVAQUIN 500 M500 M2 PO (09:33)
[2019-02-08] MEDS ORDERED: PREDNISONE 20 M20 MG PO (09:33)
[2019-02-08 09:51] VITALS: BP 131/82
--- NOTE | 2019-02-08 10:34 | NUR ---
Patient with dc to home with hh today. Sp with patient she resides in home with her sister and niece. Niece assists with care for her mother and aunt. Discussed options therapy recommeds post acute care and phys reports home with HH. Patient agreeable to home with HH care. She has no preference for an agency and agreeable to [facility] eval. Requested [facility] eval. PCP is Dr Doc Coates with [facility]. Verified address. Sp with niece who reports she is caring for her mother so cannot transport patient. She is agreeable to [facility]. [facility] to assist with transport home.
[2019-02-08 10:56] VITALS: BP 131/82
[2019-02-08 12:25] VITALS: BP 131/82
--- NOTE | 2019-02-08 13:28 | NUR ---
SPOKE WITH RICARDO AT [facility] SHE CAN ACCEPT PT. SHE WILL NOTIFY PT TIME OF VISITS. TRANSPORTATION ARRANGED BY [employer] FOR 1500 TODAY.
[2019-02-08 16:08] VITALS: BP 131/82
== END 2019-02-08 16:12 | disposition home health service (06) | DRG 189 ==
LOC: ER 11:31 → 2N 13:45 → EROBS 13:45 → 2N 17:48
PROVIDERS: Emergency Medicine; ADMIT Hospitalist
DX: J96.20 Acute and chronic respiratory failure, unspecified whether with hypoxia or hypercapnia (principal); E87.0 Hyperosmolality and hypernatremia; J45.901 Unspecified asthma with (acute) exacerbation; I50.9 Heart failure, unspecified; I11.0 Hypertensive heart disease with heart failure; K21.9 Gastro-esophageal reflux disease without esophagitis; E11.9 Type 2 diabetes mellitus without complications; Z96.1 Presence of intraocular lens; H40.9 Unspecified glaucoma; I25.2 Old myocardial infarction; Z95.810 Presence of automatic (implantable) cardiac defibrillator; Z86.73 Personal history of transient ischemic attack (TIA), and cerebral infarction without residual deficits; Z88.0 Allergy status to penicillin; Z88.8 Allergy status to other drugs, medicaments and biological substances; Z79.899 Other long term (current) drug therapy; Z79.82 Long term (current) use of aspirin; Z79.4 Long term (current) use of insulin; Z90.89 Acquired absence of other organs; Z98.42 Cataract extraction status, left eye; Z98.41 Cataract extraction status, right eye; Z87.891 Personal history of nicotine dependence; J40 Bronchitis, not specified as acute or chronic
CPT/HCPCS: 10081

== ENCOUNTER 2019-06-15 10:02 | Inpatient (IN) | payer OTHER ==
[~2019-06-15] VITALS: Ht 152.4 cm; Wt 71.7 kg
[~2019-06-15 10:02] MED LIST changes: +LEVAQUIN 500 M500 M2 PO; +PREDNISONE 20 M20 MG PO
[2019-06-15 10:03] VITALS: BP 120/72
[2019-06-15 10:54] LABS: URINE BLOOD TRACE (Negative); URINE COLOR YELLOW; URINE GLUCOSE-RANDOM* NEGATIVE (Negative); URINE KETONES TRACE (Negative); URINE NITRITE-REFLEX NEGATIVE (Negative); URINE PROTEIN (DIPSTICK) TRACE (Negative); URINE SPECIFIC GRAVITY 1.025 (1.005-1.035)
[2019-06-15 10:54] LABS: HEMATOCRIT 38.6 % (37.0-47.0); HEMOGLOBIN 12.1 gm/dL (12.0-15.0); MCH 23.9 pg (26.0-34.0); MCHC 31.4 g/dL (28.0-37.0); MCV 76.2 fL (80.0-100.0); PLATELET COUNT 138 thou/uL (150-400); RBC 5.07 mil/uL (4.20-5.00); RDW 18.4 % (10.5-14.5); WBC 4.3 thou/uL (4.0-11.0)
[2019-06-15 11:00] LABS: AMP/METHAMP Negative (Negative); BARBITURATES POSITIVE (Negative); BENZODIAZEPINES Negative (Negative); COCAINE Negative (Negative); METHADONE Negative (Negative); OPIATES Negative (Negative); PCP Negative (Negative); URINE LEUKOCYTES-REFLEX 3+ (Negative)
[2019-06-15 11:01] LABS: ICTOTEST (BILI CONFIRMATORY) Negative (Negative); URINE BILIRUBIN NEGATIVE (Negative); URINE CLARITY HAZY
[2019-06-15 11:03] LABS: CASTS None Seen /LPF (None Seen); SQUAMOUS >10 Many /LPF (0-3); URINE RBC 0-2 Rare /HPF (0-2); URINE WBC-REFLEX 6-15 Few /HPF (0-5)
[2019-06-15 11:04] LABS: APTT 29.4 Seconds (24.5-32.8); CALCIUM 9.7 mg/dL (8.5-10.1); INR 1.2; POTASSIUM 4.1 mmol/L (3.5-5.1); PROTIME 12.8 Seconds (9.3-11.4)
[2019-06-15 11:04] LABS: CRYSTALS None Seen /LPF (None Seen)
[2019-06-15 11:13] LABS: MAGNESIUM 1.7 mg/dL (1.8-2.4); TOTAL BILIRUBIN 0.6 mg/dL (<0.1-1.0); TOTAL PROTEIN 6.9 g/dL (6.4-8.2); TROPONIN-I 0.25 ng/mL (<0.06)
[2019-06-15 11:24] LABS: ABSOLUTE NEUTROPHILS 2.2 thou/uL (1.4-8.2); ANISOCYTOSIS 1+; HYPOCHROMASIA 1+
[2019-06-15] MEDS ORDERED: ALBUTEROL2.5 MG/0.5 INH (11:35)
[2019-06-15] MEDS ORDERED: LORAZEPAM I2 MG/1 ML PO (11:36)
[2019-06-15] MEDS ORDERED: MORPHINE S PO (11:37)
[2019-06-15] MEDS ORDERED: SENNA8.8 MG/5 M PO (11:37)
[2019-06-15 12:26] VITALS: BP 140/92
[2019-06-15 12:56] VITALS: BP 139/77
[2019-06-15 13:30] VITALS: BP 124/74
[2019-06-15 15:31] VITALS: BP 125/69
[2019-06-15 20:15] VITALS: BP 121/67
[2019-06-16 05:10] VITALS: BP 120/62
[2019-06-16 06:13] LABS: CHOLESTEROL 140 mg/dL (<200); HDL CHOLESTEROL 42 mg/dL (>40); LDL CHOLESTEROL 83 mg/dL (<100); TC:HDL 3.3 Ratio (Not establshd); TRIGLYCERIDE 79 mg/dL (<150); VLDL 16 mg/dL (<40)
[2019-06-16 07:20] VITALS: BP 137/81
--- NOTE | 2019-06-16 10:48 | EKG ---
[place] [address] [address] [facility] [place] [address] ELECTROCARDIOGRAM REPORT Name: YUNIELJUANCARLOSADOLFO MOLINA Room #: 360-P ADM IN M.R.#: [id number] Admission: 06/15/19 Attend Phys: Lynn Pedraza Discharge: Date of : 34 Report #: [id number] THIS REPORT FOR: //name// [facility] ED Test Date: 2019-06-15 Test Time: 10:07:54 Pat Name: JUANCARLOS BRICE Department: Room: 360 Gender: F Hot Die Press Feeder: SANJEEV : 1935 Requested By: Alcides Crouch Order Number: [id number] MD: Shahram Plaza Measurements Intervals [place] Rate: 96 P: -20 SC: 193 QRS: -73 QRSD: 144 T: 91 QT: 386 QTc: 488 Interpretive Statements Sinus tachycardia Ventricular trigeminy IVCD, consider atypical RBBB Lateral infarct, acute Probable anterior infarct, recent Compared to ECG 02/05/2019 11:37:45 Ventricular premature complex(es) now present Myocardial infarct finding now present Ventricular-paced complex(es) or rhythm no longer present Electronically Signed On 06-16-2019 10:48:28 ORTHOTIC AND PROSTHETIC TECHNICIAN by Shahram Plaza [email or web address] <ELECTRONICALLY SIGNED> By: Shahram Plaza MD 06/16/19 1048 1007 1007 Shahram Plaza MD /EPI
[2019-06-16 15:16] VITALS: BP 89/40
[2019-06-16 20:00] VITALS: BP 98/52
[2019-06-16 23:53] VITALS: BP 101/51
[2019-06-17] VITALS: BP 101/51
[2019-06-17 04:20] VITALS: BP 126/72
[2019-06-17 08:16] VITALS: BP 122/74
[2019-06-17 10:35] VITALS: BP 101/31
[2019-06-17 15:39] VITALS: BP 121/84
[2019-06-17 19:33] VITALS: BP 133/69
[2019-06-18 04:50] VITALS: BP 129/42
[2019-06-18 07:45] VITALS: BP 121/93
[2019-06-18] MEDS ORDERED: MIRALAX17 GM PO (10:29)
[2019-06-18] MEDS ORDERED: COREG6.25 MG PO (10:29)
[2019-06-18] MEDS ORDERED: CEFUROXIME250 MG PO (10:30)
[2019-06-18 16:30] VITALS: BP 106/59
== END 2019-06-18 18:35 | disposition hospice, inpatient (51) | DRG 690 ==
LOC: ER 10:02 → EROBS 12:08 → 4S 12:08 → 3W 12:08 → 4S 06-17 23:12
PROVIDERS: Emergency Medicine; ADMIT Hospitalist
PROC: 4B02XSZ Measurement of Cardiac Pacemaker, External Approach (ICD-10-PCS; principal; 2019-06-18)
DX: N39.0 Urinary tract infection, site not specified (principal); G93.40 Encephalopathy, unspecified; I50.84 End stage heart failure; J45.909 Unspecified asthma, uncomplicated; I11.0 Hypertensive heart disease with heart failure; K21.9 Gastro-esophageal reflux disease without esophagitis; E11.9 Type 2 diabetes mellitus without complications; I25.2 Old myocardial infarction; Z79.4 Long term (current) use of insulin; Z90.49 Acquired absence of other specified parts of digestive tract; Z95.0 Presence of cardiac pacemaker; Z98.42 Cataract extraction status, left eye; Z98.41 Cataract extraction status, right eye; Z87.891 Personal history of nicotine dependence; Z88.0 Allergy status to penicillin; Z88.8 Allergy status to other drugs, medicaments and biological substances; Z86.73 Personal history of transient ischemic attack (TIA), and cerebral infarction without residual deficits
CPT/HCPCS: 10102; 10779; 10879